=== PATIENT | female | born 1935 | race Caucasian/White ===

== ENCOUNTER 2017-11-26 13:15 | Inpatient (IN) | payer OTHER, MEDICAID ==
[2017-11-26] VITALS (13 sets, daily range): BP systolic 72–117; BP diastolic 25–96
[~2017-11-26] VITALS: Ht 157.5 cm; Wt 73.9 kg
[~2017-11-26 13:15] MED LIST: ACETAMINOPHEN325 M1 PO; ALBUTEROL INH; ALPRAZOLAM 0.50.5 M1 PO; AMBIEN 5 MG TABL5 M1 PO; AMITRIPTYLINE H25 M2; AMITRIPTYLINE H25 M2 PO; ANTACID PO; ASPIR 8181 MG PO; ASPIRIN325; ASPIRIN325 PO; ATIVAN0.5 MG PO; BACTROBAN CREAM30 G1; BACTROBAN15 GM; BISACODYL SUPP10 MG RECTAL; CALCIUM 600 +1 EAC9 PO; CALTRATE-600 W1 EACH PO; CHLORASEPTIC LOZENGE; CHLORASEPTIC177 ML MM; CLARITIN10 M2 PO; CLARITIN10 MG; CLARITIN10 MG PO; CLEOCIN HCL150 M1 PO; CYCLOBENZAPRINE10 MG PO; CYMBALTA30 MG PO; CYMBALTA60 MG PO; DIABETA 1.25M1.25 M1 PO; DIPHENHIST50 MG PO; DIPHENHYDRAMINE25 M3 PO; DITROPAN XL5 M1 PO; DUONEB 2.5-0.5 M3 ML INH; FENTANYL PA50 MCG/HR TRANSDERM; FLEXERIL PO; FOLTX1 TAB PO; GABAPENTIN 100100 MG PO; GLUCOPHAGE1000 MG PO; GLUCOTROL5 MG PO; HYDROCODON-ACE1 EAC2 PO; HYDROCODON-ACE1 EAC7; HYDROCODON-ACE1 EAC8 PO; HYDROCODON-ACE1 EACH PO; IMODIUM ADVANC1 EAC1 PO; KEFLEX500 MG PO; LEVAQUIN 500 M500 M2 PO; LEVAQUIN 750 M750 MG PO; LIDODERM 5%1 PATC1 TRANSDERM; LISINOPRIL10 MG PO; LISINOPRIL2.5 MG PO; LOMOTIL TABLET1 EACH PO; LOPERAMIDE 2 MG2 MG PO; LOPRESSOR 12.12.5 MG PO; LOPRESSOR 50 MG50 M1 PO; LYRICA100 MG PO; MAGOX 400400 MG PO; METFORMIN HCL500 MG PO; MICRONASE1.25 MG PO; MICRONASE2.5 MG PO; MILK OF MA2400 MG/10 PO; MIRALAX17 GM PO; MOBIC7.5 MG PO; MOM PO; MS CONTIN15 MG PO; MUCINEX TA600 MG/TA2 PO; MUCINEX600 MG PO; MYLANTA 12 OZ355 M1 PO; NASAL DECONGEST10 MG PO; NORCO 5-325 TA1 EACH PO; NOVOLOG100 UNIT/1 SQ; NOVOLOG100 UNIT/1 SUBQ; ONDANSETRON HCL4 M2 PO; OYSTER SHELL C1 EA14 PO; PAIN-RELIEF85 GM TOP; PHENERGAN50 MG/1 M1 IM; PLAVIX 75 MG TA75 M1 PO; PRAVACHOL80 MG PO; PREDNISONE 10 M10 MG PO; PROMETHAZI25 MG/1 M1 IM; PROTONIX40 M1 PO; RESTORIL15 MG PO; RESTORIL30 MG; RESTORIL30 MG PO; ROXICODONE15 M1 PO; SPIRIVA INH; SUDAFED PE10 MG; SUDAFED PE10 MG PO; SUDAFED30 MG PO; TRAZODONE 150150 M1 PO; TYLENOL325 MG PO; VITAMIN B-12500 MCG PO; VOLTAREN GEL 1100 G2 TOP; WELCHOL 625 MG625 MG PO; ZESTRIL10 MG PO; ZESTRIL20 MG PO
--- NOTE | 2017-11-26 13:35 | NUR ---
PT HAS NO CPR/DNR PAPERWORK FROM [facility], [facility] TALKING WITH PT AT THIS TIME, PT IS ABLE TO UNDERSTAND AND ANSWER ALL QUESTIONS AT THIS TIME.
[2017-11-26 13:38] LABS: POC CA IONIZED 4.2 mg/dL (4.5-5.3); POC HEMOGLOBIN 14.6 g/dL (12.0-17.0); POC POTASSIUM 5.1 mmol/L (3.5-4.9)
--- NOTE | 2017-11-26 13:38 | NUR ---
DR. MEDEL TRYING TO GET HOLD OF PT'S FAMILY AT THIS TIME
[2017-11-26 13:56] LABS: ABSOLUTE BASOPHILS 0.1 thou/uL (0.0-0.2); ABSOLUTE EOSINOPHILS 0.3 thou/uL (0.0-0.7); ABSOLUTE LYMPHOCYTES 2.8 thou/uL (0.8-5.3); ABSOLUTE MONOCYTES 0.6 thou/uL (0.0-1.2); ABSOLUTE NEUTROPHILS 9.3 thou/uL (1.6-8.1); BASOPHILS 0.6 %; EOSINOPHILS 2.4 %; HEMATOCRIT 40.6 % (37.0-47.0); HEMOGLOBIN 12.7 gm/dL (12.0-15.0); LYMPHOCYTES 21.6 %; MCH 28.8 pg (26.0-34.0); MCHC 31.3 g/dL (28.0-37.0); MCV 92.1 fL (80.0-100.0); MONOCYTES 4.3 %; MPV 7.4 fl. (7.2-11.1); NUCLEATED RBCS 0 /100WBC; PLATELET COUNT* 530 thou/uL (150-400); POLYS 71.1 %; RBC 4.41 mil/uL (4.20-5.00); RDW-CV 14.5 % (10.5-14.5); WBC 13.2 thou/uL (4.0-11.0)
[2017-11-26 14:05] LABS: ANION GAP 12 mmol/L (7-16); BUN 21 mg/dL (7-18); CALCIUM 8.1 mg/dL (8.5-10.1); CHLORIDE 99 mmol/L (98-107); CO2 23 mmol/L (21-32); CREATININE 1.3 mg/dL (0.6-1.3); GLUCOSE 405 mg/dL (70-99); POTASSIUM 5.3 mmol/L (3.5-5.1); SODIUM 134 mmol/L (136-145)
[2017-11-26 14:06] LABS: PROTIME 10.1 Seconds (9.20-11.50)
[2017-11-26 14:16] LABS: ALBUMIN 2.9 g/dL (3.4-5.0); ALKALINE PHOSPHATASE 88 U/L (46-116); LIPASE 95 U/L (73-393); NT-PRO BRAIN NAT PEPTIDE 2355 pg/mL (<300); SGOT 21 U/L (15-37); SGPT 16 U/L (30-65); TOTAL BILIRUBIN 0.2 mg/dL (<0.1-1.0); TOTAL PROTEIN 6.9 g/dL (6.4-8.2); TROPONIN-I LEVEL <0.06 ng/mL (<0.06)
--- NOTE | 2017-11-26 15:27 | NUR ---
DPOA REQUESTED TO HOLD OFF ON SODIUM POLYSTYRENE SUSPENSION DUE TO N/V AND PT SLEEPING.
--- NOTE | 2017-11-26 17:15 | EKG ---
[place] [address] ELECTROCARDIOGRAM REPORT Name: TARIK MALLORY Room: [place] [address] ADM IN [facility].#: [id number] Admission: 11/26/17 Attend Phys: Rachele Jorge Discharge: Date of : 39 Report #: [id number] THIS REPORT FOR: //name// [facility] ED Test Date: 2017-11-26 Test Time: 13:24:51 Pat Name: TARIK MALLORY Department: Room: [facility] Gender: F Automobile Damage Appraiser: : 1935 Requested By: Osmel Medina Order Number: [id number] MD: Geoff Lou Measurements Intervals [place] Rate: 39 P: 0 W[place]: QRS: -85 QRSD: 166 T: 119 QT: 574 QTc: 463 Interpretive Statements Complete AV block with wide QRS complex Right bundle branch block Compared to ECG 06/17/2016 08:27:01 AV block, complete (third-degree) now present Myocardial infarct finding no longer present Possible ischemia no longer present Electronically Signed On 11-26-2017 17:15:25 CDT by Geoff Lou [email or web address] <ELECTRONICALLY SIGNED> By: Geoff Lou MD, FACC 11/26/17 1715 1324 1324 Geoff Lou MD, FACC /EPI
--- NOTE | 2017-11-26 18:05 | NUR ---
1700 RECEIVED PATIENT PER CART FROM ER. SEE ADMISSION ASSESSMENT AND HISTORY. PT IS IN COMPLETE HEART BLOCK AND DNR. DOPAMIN INFUSING AT 10 MCG/KG/MN
--- NOTE | 2017-11-26 18:16 | NUR ---
DR MCPHERSON HERE TO SEE PATIENT
[2017-11-27] VITALS (10 sets, daily range): BP systolic 44–133; BP diastolic 28–48
[2017-11-27 04:21] LABS: ALBUMIN 2.8 g/dL (3.4-5.0); CALCIUM 8.5 mg/dL (8.5-10.1); CREATININE 1.5 mg/dL (0.6-1.3); POTASSIUM 5.7 mmol/L (3.5-5.1); TOTAL BILIRUBIN 0.3 mg/dL (<0.1-1.0); TOTAL PROTEIN 6.9 g/dL (6.4-8.2)
--- NOTE | 2017-11-27 12:13 | NUR ---
INTERDISICIPLINARY ROUNDS. DISCUSSED WITH DR MCPHERSON AND NURSING, PT ADMITTED WITH HEART BLOCK, PT AND FAMILY REFUSING PACEMAKER. MET WITH PT'S DTR/GERMANIA, SON AND DIL. GERMANIA IS DPOA, STATED THAT THE FAMILY AND PT HAD A 'LUCID' CONVERSATION THIS AM AND PT DOES NOT WANT PACEMAKER. PT HAS LIVED AT [facility] FOR 10YRS. THE FAMILY IS INTERESTED IN HOSPICE AND WANT PT TO RETURN TO HER FAMILIAR SURROUNDINGS, AWARE SHE WILL NOT SURVIVE WITHOUT PACEMAKER. GER[place]IA AND FAMILY WENT OVER TO [facility] AND SPOKE WITH RANCHO/ AND JESSE/DAVIE ABOUT HOSPICE ALSO. THEY HAVE CHOSEN [facility]. CALLED AND FAXED REFERRAL TO [facility], THEY WILL MEET WITH FAMILY IN HOSPITAL SOON. CALLED AND FAXED UPDATED CLINICAL TO [facility]. ANTICIPATE PT WILL RETURN TO [facility] LATER TODAY. AWAIT HOSPICE EVAL
[2017-11-27] MEDS ORDERED: CLARITIN10 MG PO (13:19)
--- NOTE | 2017-11-27 13:55 | NUR ---
PT TO DISCHARGE BACK TO THE [facility]. REPORT TO MEGHNA LEE. PT AWARE OF DISCHARGE. DISCHARGING TO [facility].
--- NOTE | 2017-11-27 17:16 | EKG ---
[place] [address] ELECTROCARDIOGRAM REPORT Name: TARIK MALLORY Room: [address] DIS IN M.R.#: [id number] Admission: 11/26/17 Attend Phys: Rachele Jorge Discharge: 11/27/17 Date of : 39 Report #: [id number] THIS REPORT FOR: //name// [facility] ED Test Date: 2017-11-26 Test Time: 13:39:30 Pat Name: TARIK MALLORY Department: Room: [address] Gender: F Sales And Service Officer: : 1935 Requested By: Osmel Medina Order Number: [id number] Veronica MD: Eugene Singh Measurements Intervals [place] Rate: 36 P: 0 HI: 155 QRS: -84 QRSD: 167 T: 117 QT: 509 QTc: 394 Interpretive Statements Complete heart block with wide QRS escape rhythm Right bundle branch block Abnormal T, consider ischemia, lateral leads Compared to ECG 11/26/2017 13:24:5 complete heart block persists Electronically Signed On 11-27-2017 17:16:29 CDT by Eugene Singh [email or web address] <ELECTRONICALLY SIGNED> By: Eugene Singh MD, [facility] 11/27/17 1716 1339 1339 Eugene Singh MD, [facility] /EPI
--- NOTE | 2017-12-14 12:09 | CON ---
[address] [address] CONSULTATION Name: MALLORYDILLONTARIK J Room: [address] IN M.R.#: [id number] Admission: 11/26/17 Attend Phys: Rachele Jorge Discharge: 11/27/17 Date of : 39 Report #: [id number] THIS REPORT FOR: //name// CC: Meek Arechiga DATE OF SERVICE: 11/26/2017 REQUESTING PHYSICIAN: Dr. Medina and Dr. Arechiga CHIEF COMPLAINT: Weakness, fatigue and bradycardia. HISTORY OF PRESENT ILLNESS: The patient is an 82-year-old female I was verbally asked to evaluate in the Emergency Room when she presented with a heart rate in the 30s, blood pressure in the 70 systolic range and a complete heart block. She had been staying in the halfway for several years following bilateral amputations of her lower extremities below the knees. She is a DNR. She did not respond to atropine in the Emergency Room and then with boluses of epinephrine her heart rate would improve to the 60s, but this was only transient. Currently, she is on a dopamine drip with heart rates in the mid 40s and a systolic pressure in the 80s. She remains in heart block. She is hyperkalemic. She was on a low dose of metoprolol, which has been held. The family who is at bedside usually allow her to make decisions for herself and she does not have a durable power of estate attorney and they at this time are not interested in more aggressive measures such as a pacemaker implantation. Historically, she does have a history of coronary artery disease, status post remote ID in the early 1999s. Most of her issues have been in regards to her lower extremity peripheral vascular disease. She is a longtime smoker. Ultimately because of osteomyelitis, she ended up having bilateral vzgls-vye-zpwv amputations. Her mental status is reduced and she is not able to give us a history, but apparently she woke up with nausea and vomiting and had noticed on evaluation of her vital signs that her heart rate was in the 40s and then an ambulance was called. PAST MEDICAL HISTORY: She has a remote history of diabetes with numerous complications, bilateral acjpa-rqq-mlxu amputations, tobacco abuse syndrome, peripheral vascular disease and prior squamous cell carcinoma of the cervix. PAST SURGICAL HISTORY: Includes small-bowel obstruction, hysterectomy, vulvectomy secondary to cancer, ddjoq-uxi-etfw amputations, total knee and hernia repair. HOME MEDICATIONS: Include mag oxide, metformin, guaifenesin, Spiriva, [place] [address] CONSULTATION Name: MOHAMUDTARIK J Room: [address] IN M.R.#: [id number] Admission: 11/26/17 Attend Phys: Rachele Jorge Discharge: 11/27/17 Date of : 39 Report #: [id number] 15 mg, Tylenol p.r.n., albuterol, Atrovent, Protonix 40 mg p.o. b.i.d., hydrocodone, loperamide, Plavix 75 mg daily, gabapentin 300 mg p.o. t.i.d., lisinopril 12.5 mg p.o. b.i.d. and metoprolol 12.5 mg p.o. b.i.d. ALLERGIES: SHE HAS ALLERGIES TO BACLOFEN, CODEINE, PENICILLIN, SULFA AND TAPE. SOCIAL HISTORY: As above. No active tobacco or ethanol use. REVIEW OF SYSTEMS: This is not obtained from the patient herself as she is obtunded, but the chart record is that: RESPIRATORY: She was not having shortness of breath. CARDIOVASCULAR: She was not having chest pain. There was no record of palpitations. NEUROLOGIC: Positive weakness and fatigue. No syncope and no seizures. SKIN: No rashes. GENERAL: No fevers or chills. PHYSICAL EXAMINATION: GENERAL: The patient is resting comfortably, but her breathing is labored and her mental status is reduced VITAL SIGNS: Her blood pressure is 75/50. HEENT: Eyes are open. Sclerae are anicteric. Face: There is no evidence of trauma. NECK: Supple. There is no jugular venous distention. Carotid upstrokes are reduced in intensity. CARDIOVASCULAR: Regular. There is faint systolic murmur. I cannot hear a rub or gallop or pericardial knock. ABDOMEN: Nontender. EXTREMITIES: There are qyfvp-tcs-yedz amputations, but her amputation sites look clean and dry without erythema or ulcers. SKIN: As above. LABORATORY DATA: EKG demonstrates a wide QRS with complete heart block, 2:1 underlying ventricular heart rate, appears junctional with a heart rate in the 40s. There are no dynamic ST-T wave abnormalities. Her sodium is 135, potassium was apparently higher in the 6s, but most recent check was 5.1, CO2 is 21, anion gap is 21, glucose is 381, calcium was 4.2. BNP is 2355. Creatinine is 1.3. Troponin I is 0.06. Hemoglobin is 12.7. IMAGING: There is no active imaging. IMPRESSION: 1. Bradycardia. This is secondary to likely intrinsic conduction abnormality. 2. Complete heart block as noted above. She has a history of coronary artery disease and given her QRS widening and underlying junctional heart rhythm, this appears to be a conduction abnormality. I discussed [place] [address] CONSULTATION Name: TARIK MALLORY Lexis Room: [address] IN .R.#: [id number] Admission: 11/26/17 Attend Phys: aRchele Jorge Discharge: 11/27/17 Date of : 39 Report #: [id number] different options such as a temporary pacemaker to see if correcting her electrolyte abnormalities would improve her clinical situation, but overall this is fairly doubtful and if they want to be really aggressive she ultimately will require permanent pacemaker and at this time they declined both therapies. 3. Do not resuscitate as noted above. 4. Coronary artery disease. She does not appear to be having an acute ID and we will continue on antiplatelet therapy. 5. Hyperkalemia. This is being corrected in the Emergency Room. 6. Peripheral vascular disease, severe. 7. Hypotension. I would continue with IV fluids, pressor agents as necessary with a conservative treatment approach. <ELECTRONICALLY SIGNED> By: Geoff Lou MD, [facility] 12/14/17 1209 1632 [id number] Lou MD, FACC /nt
== END 2017-11-27 15:08 | disposition hospice, home (50) | DRG 291 ==
LOC: M.ERS 13:15 → M.TBA-ER 14:24 → M.ICU 14:24 → M.TBA-ER 16:02 → M.ICU 17:20
PROVIDERS: Emergency Medicine; ADMIT Internal Medicine
DX: I11.0 Hypertensive heart disease with heart failure (principal); G93.41 Metabolic encephalopathy; I44.2 Atrioventricular block, complete; R00.1 Bradycardia, unspecified; J96.11 Chronic respiratory failure with hypoxia; I50.43 Acute on chronic combined systolic (congestive) and diastolic (congestive) heart failure; Z66 Do not resuscitate; E87.5 Hyperkalemia; I95.9 Hypotension, unspecified; F01.50 Vascular dementia, unspecified severity, without behavioral disturbance, psychotic disturbance, mood disturbance, and anxiety; E11.51 Type 2 diabetes mellitus with diabetic peripheral angiopathy without gangrene; E78.5 Hyperlipidemia, unspecified; I25.10 Atherosclerotic heart disease of native coronary artery without angina pectoris; Z85.41 Personal history of malignant neoplasm of cervix uteri; I25.2 Old myocardial infarction; Z89.512 Acquired absence of left leg below knee; Z89.511 Acquired absence of right leg below knee; Z90.49 Acquired absence of other specified parts of digestive tract; Z90.710 Acquired absence of both cervix and uterus; Z79.84 Long term (current) use of oral hypoglycemic drugs; Z79.02 Long term (current) use of antithrombotics/antiplatelets; Z79.899 Other long term (current) drug therapy; Z88.1 Allergy status to other antibiotic agents; Z88.5 Allergy status to narcotic agent; Z88.0 Allergy status to penicillin; Z88.2 Allergy status to sulfonamides; Z88.8 Allergy status to other drugs, medicaments and biological substances; Z91.048 Other nonmedicinal substance allergy status; Z82.49 Family history of ischemic heart disease and other diseases of the circulatory system

== ENCOUNTER 2018-06-26 22:56 | Emergency (ER) | payer OTHER, MEDICAID ==
[~2018-06-26] VITALS: Ht 157.5 cm; Wt 77.1 kg
[2018-06-26] MEDS ORDERED: GLIPIZIDE ER2.5 MG PO (23:19)
[2018-06-26] MEDS ORDERED: OXYCODONE HCL 55 MG PO ×2 (23:21→23:22)
[2018-06-26] MEDS ORDERED: VITAMINC500 PO (23:21)
[2018-06-26] MEDS ORDERED: SPIRIVA18 MCG INH (23:21)
[2018-06-26] MEDS ORDERED: OCEAN104 ML (23:23)
[2018-06-26] MEDS ORDERED: ZYRTEC10 M5 PO (23:24)
[2018-06-26] MEDS ORDERED: LYRICA 50 MG50 MG PO (23:25)
[2018-06-26] MEDS ORDERED: THROAT LOZENGE1 EACH (23:25)
[2018-06-26] MEDS ORDERED: HYDROXYZINE HCL25 M1 PO (23:26)
[2018-06-26] MEDS ORDERED: DEPAKOTE 250MG250 M1 PO (23:26)
[2018-06-27 01:56] VITALS: BP 123/58
== END 2018-06-27 01:57 | disposition home or self-care (01) ==
LOC: M.ERS 22:56
DX: S00.31XA Abrasion of nose, initial encounter (principal); E11.9 Type 2 diabetes mellitus without complications; I10 Essential (primary) hypertension; E78.5 Hyperlipidemia, unspecified; Z90.49 Acquired absence of other specified parts of digestive tract; Z90.710 Acquired absence of both cervix and uterus; Z96.651 Presence of right artificial knee joint; Z88.0 Allergy status to penicillin; Z88.2 Allergy status to sulfonamides; Z88.5 Allergy status to narcotic agent; Z88.8 Allergy status to other drugs, medicaments and biological substances; W07.XXXA Fall from chair, initial encounter; Y93.89 Activity, other specified; Y92.89 Other specified places as the place of occurrence of the external cause; Y99.8 Other external cause status

== ENCOUNTER 2019-01-06 01:09 | Emergency (ER) | payer OTHER, MEDICAID ==
[~2019-01-06] VITALS: Ht 162.6 cm; Wt 72.3 kg
[~2019-01-06 01:09] MED LIST changes: +DEPAKOTE 250MG250 M1 PO; +GLIPIZIDE ER2.5 MG PO; +HYDROXYZINE HCL25 M1 PO; +LYRICA 50 MG50 MG PO; +OCEAN104 ML; +OXYCODONE HCL 55 MG PO; +SPIRIVA18 MCG INH; +THROAT LOZENGE1 EACH; +VITAMINC500 PO; +ZYRTEC10 M5 PO
[2019-01-06] MEDS ORDERED: VITAMIN D250000 UNIT PO (01:29)
[2019-01-06] MEDS ORDERED: JUVEN PACKET1 EAC1 PO (01:30)
[2019-01-06] MEDS ORDERED: BENADRYL ITCH28.3 GM TOP (01:31)
[2019-01-06 04:15] VITALS: BP 128/52
== END 2019-01-06 04:15 | disposition home or self-care (01) ==
LOC: M.ERS 01:09
DX: S00.93XA Contusion of unspecified part of head, initial encounter (principal); I10 Essential (primary) hypertension; I73.9 Peripheral vascular disease, unspecified; E11.9 Type 2 diabetes mellitus without complications; Z90.49 Acquired absence of other specified parts of digestive tract; Z96.651 Presence of right artificial knee joint; Z90.710 Acquired absence of both cervix and uterus; Z85.44 Personal history of malignant neoplasm of other female genital organs; Z91.048 Other nonmedicinal substance allergy status; Z88.0 Allergy status to penicillin; Z88.2 Allergy status to sulfonamides; Z88.6 Allergy status to analgesic agent; Z88.8 Allergy status to other drugs, medicaments and biological substances; W06.XXXA Fall from bed, initial encounter; Y93.89 Activity, other specified; Y92.89 Other specified places as the place of occurrence of the external cause; Y99.8 Other external cause status

== ENCOUNTER 2019-06-05 15:40 | Emergency (ER) | payer OTHER, MEDICAID ==
[~2019-06-05] VITALS: Ht 121.9 cm; Wt 79.4 kg
[~2019-06-05 15:40] MED LIST changes: +BENADRYL ITCH28.3 GM TOP; +JUVEN PACKET1 EAC1 PO; +VITAMIN D250000 UNIT PO
[2019-06-05 17:34] LABS: ABSOLUTE EOSINOPHILS 0.4 thou/uL (0.0-0.7); ABSOLUTE LYMPHOCYTES 2.1 thou/uL (0.8-5.3); ABSOLUTE MONOCYTES 0.9 thou/uL (0.0-1.2); ABSOLUTE NEUTROPHILS 6.7 thou/uL (1.6-8.1); BASOPHILS 0.3 %; EOSINOPHILS 4.2 %; HEMATOCRIT 34.8 % (37.0-47.0); HEMOGLOBIN 11.3 gm/dL (12.0-15.0); LYMPHOCYTES 20.4 %; MCH 28.9 pg (26.0-34.0); MCHC 32.5 g/dL (28.0-37.0); MCV 88.8 fL (80.0-100.0); MONOCYTES 8.6 %; MPV 7.5 fl. (7.2-11.1); NUCLEATED RBCS 0 /100WBC; PLATELET COUNT* 376 thou/uL (150-400); POLYS 66.5 %; RBC 3.92 mil/uL (4.20-5.00); RDW-CV 14.1 % (10.5-14.5); WBC 10.1 thou/uL (4.0-11.0)
[2019-06-05 17:40] LABS: CALCIUM 8.8 mg/dL (8.5-10.1); CREATININE 0.7 mg/dL (0.6-1.3); POTASSIUM 4.5 mmol/L (3.5-5.1)
[2019-06-05 17:45] LABS: ALBUMIN 2.8 g/dL (3.4-5.0); TOTAL BILIRUBIN 0.1 mg/dL (<0.1-1.0); TOTAL PROTEIN 6.3 g/dL (6.4-8.2)
[2019-06-05 19:21] VITALS: BP 128/46
--- NOTE | 2019-06-08 10:13 | EKG ---
[place] [address] ELECTROCARDIOGRAM REPORT Name: TARIK MALLORY Room: [facility]#: [id number] Admission: 06/05/19 Attend Phys: Discharge: 06/05/19 Date of : 39 Date of Service: 06/05/19 1545 Report #: [id number] THIS REPORT FOR: //name// [facility] ED Test Date: 2019-06-05 Test Time: 15:45:55 Pat Name: TARIK MALLORY Department: Room: Gender: F Formulation Technician: MS : 1935 Requested By: Christiane Nolasco Order Number: [id number] Reading MD: Boris Martinez Measurements Intervals [place] Rate: 79 P: 58 MA: 196 QRS: -48 QRSD: 158 T: 244 QT: 443 QTc: 508 Interpretive Statements Sinus rhythm Ventricular premature complex Right bundle branch block Inferior infarct, age indeterminate Compared to ECG 11/26/2017 13:39:30 Ventricular premature complex(es) now present AV block, complete (third-degree) no longer present Electronically Signed On 06-08-2019 10:11:50 CDT by Boris Martinez [email or web address] <ELECTRONICALLY SIGNED> By: Boris Martinez MD, FACC 06/08/19 1011 1545 1545 Boris Martinez MD, FAC /EPI
== END 2019-06-05 19:22 | disposition home or self-care (01) ==
LOC: M.ERS 15:40
PROVIDERS: Personal Emergency Response Attendant
DX: S00.11XA Contusion of right eyelid and periocular area, initial encounter (principal); S80.811A Abrasion, right lower leg, initial encounter; R22.0 Localized swelling, mass and lump, head; E11.9 Type 2 diabetes mellitus without complications; E78.5 Hyperlipidemia, unspecified; Z88.2 Allergy status to sulfonamides; Z88.5 Allergy status to narcotic agent; Z88.0 Allergy status to penicillin; Z88.8 Allergy status to other drugs, medicaments and biological substances; Z90.49 Acquired absence of other specified parts of digestive tract; Z96.651 Presence of right artificial knee joint; Z90.710 Acquired absence of both cervix and uterus; W07.XXXA Fall from chair, initial encounter; Y93.89 Activity, other specified; Y92.128 Other place in nursing home as the place of occurrence of the external cause; Y99.8 Other external cause status

== ENCOUNTER 2019-06-21 07:52 | Emergency (ER) | payer OTHER, MEDICAID ==
[~2019-06-21] VITALS: Ht 160 cm; Wt 62.6 kg
[2019-06-21] MEDS ORDERED: GLUCOPHAGE1000 MG PO (08:00)
[2019-06-21] MEDS ORDERED: DRIZALMA SPRINK30 MG PO (08:02)
[2019-06-21] MEDS ORDERED: PEPCID20 MG PO (08:03)
[2019-06-21] MEDS ORDERED: VITAMIN D3 COM1 EACH PO (08:04)
[2019-06-21] MEDS ORDERED: VITAMIN C100 MG PO (08:06)
[2019-06-21 08:22] LABS: ABSOLUTE EOSINOPHILS 0.6 thou/uL (0.0-0.7); ABSOLUTE LYMPHOCYTES 2.2 thou/uL (0.8-5.3); ABSOLUTE MONOCYTES 0.7 thou/uL (0.0-1.2); ABSOLUTE NEUTROPHILS 5.3 thou/uL (1.6-8.1); BASOPHILS 0.4 %; EOSINOPHILS 6.3 %; HEMATOCRIT 34.1 % (37.0-47.0); HEMOGLOBIN 11.3 gm/dL (12.0-15.0); LYMPHOCYTES 24.6 %; MCH 28.8 pg (26.0-34.0); MCHC 33.3 g/dL (28.0-37.0); MCV 86.6 fL (80.0-100.0); MONOCYTES 8.2 %; MPV 7.5 fl. (7.2-11.1); NUCLEATED RBCS 0 /100WBC; PLATELET COUNT* 313 thou/uL (150-400); POLYS 60.5 %; RBC 3.94 mil/uL (4.20-5.00); RDW-CV 14.1 % (10.5-14.5); WBC 8.8 thou/uL (4.0-11.0)
[2019-06-21 08:48] LABS: CALCIUM 8.3 mg/dL (8.5-10.1); CREATININE 0.9 mg/dL (0.6-1.3); POTASSIUM 4.3 mmol/L (3.5-5.1)
[2019-06-21 08:53] LABS: ALBUMIN 2.9 g/dL (3.4-5.0); TOTAL BILIRUBIN 0.3 mg/dL (<0.1-1.0); TOTAL PROTEIN 6.5 g/dL (6.4-8.2)
[2019-06-21 10:35] VITALS: BP 109/61
== END 2019-06-21 10:41 | disposition home or self-care (01) ==
LOC: M.ERS 07:52
PROVIDERS: Personal Emergency Response Attendant
DX: S51.011A Laceration without foreign body of right elbow, initial encounter (principal); R07.89 Other chest pain; I10 Essential (primary) hypertension; E11.9 Type 2 diabetes mellitus without complications; E78.5 Hyperlipidemia, unspecified; Z89.512 Acquired absence of left leg below knee; Z89.511 Acquired absence of right leg below knee; Z90.49 Acquired absence of other specified parts of digestive tract; Z96.651 Presence of right artificial knee joint; Z90.710 Acquired absence of both cervix and uterus; Z91.048 Other nonmedicinal substance allergy status; Z88.0 Allergy status to penicillin; Z88.1 Allergy status to other antibiotic agents; Z88.2 Allergy status to sulfonamides; Z88.6 Allergy status to analgesic agent; Z88.8 Allergy status to other drugs, medicaments and biological substances; W06.XXXA Fall from bed, initial encounter; Y93.89 Activity, other specified; Y92.89 Other specified places as the place of occurrence of the external cause; Y99.8 Other external cause status